=== PATIENT | female | born 1955 | race Caucasian/White ===

== ENCOUNTER 2024-04-03 04:37 | Emergency (ER) | payer MEDICARE ==
[~2024-04-03] VITALS: Ht 162.6 cm; Wt 75.5 kg
[2024-04-03 05:31] VITALS: O2SAT 98
[2024-04-03 05:34] VITALS: BP 136/86; PULSE 89; RESP 22; TEMP 36.8; O2SAT 99
[2024-04-03] MEDS ORDERED: HYDR-4001 MT (10:51)
[2024-04-03] MEDS: HYDROCODONE/ACETAMINOPHEN 5/325MG TABLET PO ONE (11:36)
== END 2024-04-03 11:38 | disposition home or self-care (01) ==
LOC: ER 04:37
DX: M19.012 Primary osteoarthritis, left shoulder (principal); J45.909 Unspecified asthma, uncomplicated; Z88.6 Allergy status to analgesic agent
CPT/HCPCS: 73030; 99283